=== PATIENT | male | born 1975 | race Two or more races ===

== ENCOUNTER 2025-08-19 16:50 | Inpatient (IN) | payer MEDICAID, SELFPAY ==
[2025-08-19 17:33] VITALS: BP 115/73; PULSE 111; RESP 20; TEMP 36.7; O2SAT 98
--- NOTE | 2025-08-19 17:59 | XR_ITS ---
Examination: CT abdomen with intravenous contrast CT pelvis with intravenous contrast 2-D coronal reconstructions 2-D sagittal reconstructions Date and time of exam: August 27, 2025 11:00 p.m,, comparison 07/13/2023 INDICATIONS: Diagnosis perianal abscess bruising in the buttock regions. CTDI: vol (mGy) 6.55 DLP: (mGycm) 372 Technique: Multiple axial sections of the abdomen and pelvis have been obtained. 64 slice high-resolution scanner used. 3 mm axial sections have been obtained, post intravenous injection 60 cc [id number] 2-D sagittal, coronal reconstructions obtained. Low dose protocols were performed. One or more of the following dose reduction techniques were used; automated exposure control, adjustment of the mA and/or KV according to patient size, use of iterative reconstruction technique. Findings: No focal liver or splenic lesions No gallstones No pancreatic or adrenal mass. No renal or ureteral calculi, no hydronephrosis Aortic calcification no aneurysmal dilatation Normal appendix No bowel obstruction or diverticulitis Thinning of the urinary bladder wall up to 9 mm Transverse prostate dimension 3.5 cm Small fat-containing inguinal hernias Marked skin thickening in the posterior buttock region on the right, for instance axial image 194 Right perianal infection which is extending along the medial intergluteal cleft on the right, without definite fluid-filled perianal abscess Marked infection in the perineum and medial upper thigh region bilaterally, axial image 252, more prominent involving the entire posterior right thigh in addition Early abscess in the posterior upper right thigh, image 250 measuring 33 x 22 mm axial image 251 IMPRESSION: Marked skin thickening in the posterior buttock region on the right extending along the medial intergluteal cleft extending to the perianal region without definite fluid-filled abscess Marked infection in the perineum and medial upper thigh region bilaterally more prominent involving the entire posterior right upper thigh Early abscess in the posterior upper right thigh, axial image 250, measuring at least 33 x 22 mm MRI pelvis upper thigh region without contrast follow-up would best assess for drainable abscesses
--- NOTE | 2025-08-19 17:59 | PD.EDRME ---
Rapid Medical Screening Exam RME Arrival date/time: 08/19/25 16:50 This is a case of 49-year-old male with history of hidradenitis suppurativa EtOH acute renal failure cellulitis of the right buttock abscess status post 2 incision and drainage came in in the emergency room due to redness pain swelling on the right buttocks extending to the perianal area for 1 month worsening of the symptoms this patient decided to sought consult here in the emergency room Chief Complaint: Wound Recheck / Suture Removal Time Seen by Provider: 08/19/25 17:01 Vital signs: Vital Signs Temperature 98.1 F 08/19/25 17:33 Pulse Rate 111 H 08/19/25 17:33 Respiratory Rate 20 08/19/25 17:33 Blood Pressure 115/73 08/19/25 17:33 Pulse Oximetry (%) 98 08/19/25 17:33 Oxygen Delivery Method Room Air 08/19/25 17:33
[2025-08-19 18:42] LABS: Basophils # (Auto) 0.1 Thou/mm3 (0.0-0.2); Basophils % (Auto) 1 % (0-2.5); Eosinophils # (Auto) 0.2 Thou/mm3 (0.0-0.5); Eosinophils % (Auto) 2 % (0-10); Hematocrit 31.6 % (41.0-53.0); Hemoglobin 10.2 g/dL (13.5-16.0); Immature Granulocytes Auto 0.03 Thou/mm3 (0.00-0.00); Lymphocytes # (Auto) 2.1 Thou/mm3 (1.0-4.8); Lymphocytes % (Auto) 19 % (10-50); Mean Corpuscular HGB Conc 32.3 g/dl (31.0-37.0); Mean Corpuscular Hemoglobin 28.3 pg (25.0-35.0); Mean Corpuscular Volume 88 fL (80-100); Monocytes # (Auto) 0.9 Thou/mm3 (0.0-0.8); Monocytes % (Auto) 8 % (0-12); Neutrophils # (Auto) 8.1 Thou/mm3 (1.8-7.7); Neutrophils % (Auto) 71 % (37-80); Nucleated Red Blood Cell # 0.00 Thou/mm3 (0.00-0.00); Nucleated Red Blood Cell % 0 /100 WBC (0); Platelet Count 484 Thou/mm3 (140-440); RDW Standard Deviation 45.5 fL (35.1-43.9); Red Blood Count 3.60 Miln/mm3 (4.50-5.90); White Blood Count 11.4 Thou/mm3 (3.8-10.6)
[2025-08-19 19:06] LABS: Alanine Aminotransferase < 7 U/L (10-49); Albumin, Serum 3.6 gm/dL (3.5-5.0); Albumin/Globulin Ratio 0.8 (1.2-2.2); Alkaline Phosphatase 139 U/L (46-116); Anion Gap 7 (7-16); Aspartate Amino Transferase 10 U/L (0-34); BUN/Creatinine Ratio 8 Ratio (12-20); Bilirubin,Total 0.2 mg/dL (0.3-1.2); Blood Urea Nitrogen < 5 mg/dL (9-23); Calcium 8.7 mg/dL (8.3-10.6); Calcium (Corrected) 9.0 mg/dL (8.5-10.1); Carbon Dioxide 23.8 mMol/L (20.0-31.0); Chloride 102 mMol/L (98-107); Creatinine (Component) 0.6 mg/dL (0.6-1.3); Globulin 4.8 gm/dL (2.3-3.5); Glucose 102 mg/dL (74-106); Osmolality,Calculated 263 (275-295); Potassium 4.2 mMol/L (3.4-5.1); Sodium 133 mMol/L (136-145); Total Protein 8.4 gm/dL (5.7-8.2); eGFR > 60 See Note
--- NOTE | 2025-08-19 20:04 | EDNOTE_ITS ---
ED Skin Abcess FB-RME/HPI General Chief complaint: Skin/Abscess/Foreign Body Stated complaint: WELTS/BRUISING TO BUTTOCK Time Seen by Provider: 08/19/25 17:01 Arrival date/time: 08/19/25 16:50 RME / HPI RME / HPI narrative: 08/19/25 16:50 This is a case of 49-year-old male with history of hidradenitis suppurativa EtOH acute renal failure cellulitis of the right buttock abscess status post 2 incision and drainage came in in the emergency room due to redness pain swelling on the right buttocks extending to the perianal area for 1 month worsening of the symptoms this patient decided to sought consult here in the emergency room See [facility] for Dr. Rasheed's HPI Documentation. 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 Rasheed's Physical Exam Documentation. Course Quality Measures none Orders Category Date Time Status CT Screening NOW Care 08/19/25 17:[address] Screening NOW Care 08/19/25 20:05 Completed Saline [Insert IV] NOW Care 08/19/25 20:[address] abdomen pelvis w con Stat Exams 08/19/25 17:[address] lower extremity BI w Stat Exams 08/19/25 20:05 Completed XR chest 1V portable Stat Exams 08/19/25 20:06 Completed Alcohol, Blood Medical Stat Lab 08/20/25 00:02 Completed Blood Culture (Lab) Stat Lab 08/19/25 20:52 Completed CBC Stat Lab 08/19/25 18:22 Completed CMP [Comprehensive Metabolic Panel] Stat Lab 08/19/25 18:22 Completed CRP [C-Reactive Protein] Stat Lab 08/19/25 20:52 Completed Drug Screen,Urine Stat Lab 08/20/25 05:21 Completed ESR [Sed Rate (ESR)] Stat Lab 08/19/25 20:52 Completed Hemoglobin A1C [Glycohemoglobin w (eAG)] Stat Lab 08/19/25 20:52 Completed Lactate (Lactic Acid) Stat Lab 08/19/25 20:52 Completed Magnesium Stat Lab 08/19/25 20:52 Completed Procalcitonin Stat Lab 08/19/25 20:52 Completed TSH [Thyroid Stimulating Hormone] Stat Lab 08/19/25 20:52 Completed UA, C/S IF [Urinalysis, C/S if Indicated] Stat Lab 08/19/25 22:55 Completed Cefepime Inj [Maxipime Inj] 2 gm Med 08/19/25 20:03 Discontinued SODIUM CHLORIDE 0.9% (Popper) [Ns 0.9% (P)] 50 ml IV X1 Ketorolac Inj [Toradol Inj] Med 08/19/25 20:03 Discontinued 30 mg IVP X1 ONE Morphine* Inj Med 08/19/25 20:03 Discontinued 4 mg IV X1 ONE Ondansetron Inj [Zofran Inj] Med 08/19/25 20:03 Discontinued 4 mg IVP X1 ONE Sodium Chloride 0.9% 1000 ml [Ns] 1,000 ml Med 08/19/25 20:03 Discontinued IV 999 mls/hr Vancomycin Inj 2,000 mg Med 08/19/25 20:03 Discontinued Sodium Chloride 0.9% 500 ml [Ns] 500 ml IV X1 Vital Signs Vital signs: Vital Signs Temperature 98.1 F 08/19/25 17:33 Pulse Rate 111 H 08/19/25 17:33 Respiratory Rate 20 08/19/25 17:33 Blood Pressure 115/73 08/19/25 17:33 Pulse Oximetry (%) 98 08/19/25 17:33 Oxygen Delivery Method Room Air 08/19/25 17:33 Skin / Abscess / Foreign Body MDM Narrative MDM Narrative:: This section includes all my notes and documentations, including HPI, PE, and ED course. Armen Rasheed MD HPI: 49 y/o male presents with large area of pain in the buttocks. Has trouble describing the onset. Has trouble describing the quantity and quality of the pain and exacerbating factors or relieving factors. No fever or chills. No other complaints. ROS: All negative except as documented in HPI. Physical Exam: General: Alert and oriented. Appears uncomfortable. Eyes: Conjunctivae and lids clear. ENT: No nasal congestion. Neck: Supple. Heart: RRR. Lungs: No respiratory distress. Good air movement. No rhonchi, wheezing, rales. Abdomen: Soft and nontender. Back: No CVA tenderness. Skin: Warm and dry. Entire right buttock and proximal half posterior right upper extremity remarkable for tenderness and erythema and calor. Neuro: Alert and oriented X 3. I reviewed all diagnostic test results: My interpretation of the chest x-ray is: NAD. My review of the Abdomen/Pelvis CT report is cellulitis and possible abscess. Blood tests and urine tests were unremarkable. At this point, diagnoses include: Cellulitis Abscess Treatment from me here included: IV fluid Zofran 4 mg IV Toradol 30 mg IV Morphine 4 mg IV Cefepime 2 g IV Vancomycin 2 g IV Patient remained stable. 00:53 - I discussed the case with our hospitalist and our hospitalist. About the presentation and exam and diagnostics and treatments here. And need of further care in the hospital. Will accept the patient. Armen Rasheed MD Patient data External records reviewed:: [facility] previous records (Reviewed prior ED records from 07/13/23. Patient was seen for Anorectal fistula.) Clinical information provided by:: patient Social determinants that could affect healthcare access:: none Patient has the following chronic illnesses:: BPH How is presenting disease/condition affected by chronic disease/condition?: uneffected by Evaluation data The following diagnostics were reviewed and interpreted by me:: lab results and radiology exam(s) Lab and/or radiology exams considered but not ordered:: None Interpretation Summary: I reviewed all diagnostic test results: My interpretation of the chest x-ray is: NAD. My review of the Abdomen/Pelvis CT report is cellulitis and possible abscess. Blood tests and urine tests were unremarkable. Medications / Prescriptions Medications or Prescriptions considered but not ordered:: None Medication administrations:: Medication Administration History Discontinued Medications Acetaminophen (Acetaminophen 325 Mg Tablet) 650 mg PO Q6H PRN PRN Reason: Fever >100.4 Stop: 09/19/25 01:46 Last Admin: 08/20/25 15:06 Dose: 650 mg Documented By: ZAK Acetaminophen (Acetaminophen 325 Mg Tablet) 650 mg PO Q6H PRN PRN Reason: PAIN SCALE 1-3 (mild Stop: 09/19/25 01:46 Heparin Sodium (Porcine) (Heparin Sod Inj 5000 Unit/Ml Vial) 5,000 unit SC BID NAM Stop: 09/03/25 08:59 Last Admin: 08/22/25 08:00 Dose: 5,000 unit Documented By: TAMI Co-signed By: PP Admin: 08/21/25 20:59 Dose: 5,000 unit Documented By: FF Co-signed By: DAVID Admin: 08/21/25 08:53 Dose: 5,000 unit Documented By: jeanna Co-signed By: JULISSA Admin: 08/20/25 21:02 Dose: 5,000 unit Documented By: HILDA Co-signed By: Admin: 08/20/25 08:53 Dose: 5,000 unit Documented By: ZAK Co-signed By: TAMMY Sodium Chloride (Ns) 1,000 mls @ 999 mls/hr IV .Q1H1M ONE Stop: 08/19/25 21:03 Last Infusion: 08/20/25 02:00 Dose: Infused Documented By: Admin: 08/19/25 22:42 Dose: 999 mls/hr Documented By: ELLA Cefepime HCl 2 gm/ Sodium (Chloride) 50 mls @ 100 mls/hr IV X1 ONE Stop: 08/19/25 20:32 Last Infusion: 08/19/25 23:09 Dose: Infused Documented By: Admin: 08/19/25 22:39 Dose: 100 mls/hr Documented By: ELLA Vancomycin HCl 2,000 mg/ (Sodium Chloride) 500 mls @ 150 mls/hr IV X1 ONE Stop: 08/19/25 23:22 Last Infusion: 08/20/25 03:00 Dose: Infused Documented By: Admin: 08/19/25 23:33 Dose: 150 mls/hr Documented By: ELLA Sodium Chloride (Ns) 1,000 mls @ 75 mls/hr IV .[id number] [facility] Stop: 08/20/25 15:23 Last Admin: 08/20/25 03:30 Dose: 75 mls/hr Documented By: CHARO Cefepime HCl 2 gm/ Sodium (Chloride) 50 mls @ 100 mls/hr IV Q8HR NAM Stop: 08/27/25 06:59 Last Admin: 08/22/25 14:27 Dose: 100 mls/hr Documented By: Infusion: 08/22/25 05:45 Dose: Infused Documented By: Admin: 08/22/25 05:15 Dose: 100 mls/hr Documented By: Infusion: 08/21/25 23:04 Dose: Infused Documented By: Admin: 08/21/25 22:34 Dose: 100 mls/hr Documented By: Infusion: 08/21/25 14:11 Dose: Infused Documented By: Admin: 08/21/25 13:41 Dose: 100 mls/hr Documented By: jeanna Infusion: 08/21/25 05:59 Dose: Infused Documented By: ps Admin: 08/21/25 05:29 Dose: 100 mls/hr Documented By: Infusion: 08/20/25 21:32 Dose: Infused Documented By: Admin: 08/20/25 21:02 Dose: 100 mls/hr Documented By: Infusion: 08/20/25 15:27 Dose: Infused Documented By: Admin: 08/20/25 14:57 Dose: 100 mls/hr Documented By: Infusion: 08/20/25 09:22 Dose: Infused Documented By: Admin: 08/20/25 08:52 Dose: 100 mls/hr Documented By: ZAK Doxycycline Hyclate 100 mg/ (Sodium Chloride) 100 mls @ 100 mls/hr IV BID NAM Stop: 08/27/25 08:59 Doxycycline Hyclate 100 mg/ (Sodium Chloride) 100 mls @ 100 mls/hr IV X1 ONE Stop: 08/20/25 03:14 Last Infusion: 08/20/25 04:32 Dose: Infused Documented By: Admin: 08/20/25 03:32 Dose: 100 mls/hr Documented By: CHARO Doxycycline Hyclate 100 mg/ (Sodium Chloride) 100 mls @ 100 mls/hr IV BID NAM Stop: 08/27/25 20:59 Last Admin: 08/22/25 08:01 Dose: 100 mls/hr Documented By: Infusion: 08/21/25 21:59 Dose: Infused Documented By: Admin: 08/21/25 20:59 Dose: 100 mls/hr Documented By: Infusion: 08/21/25 09:53 Dose: Infused Documented By: Admin: 08/21/25 08:53 Dose: 100 mls/hr Documented By: jeanna Infusion: 08/20/25 22:02 Dose: Infused Documented By: jeanna Admin: 08/20/25 21:02 Dose: 100 mls/hr Documented By: HILDA Influenza Virus Vaccine Quadrival (Influenza Virus Quadrivalent 0.5 Ml Syringe) 0.5 ml IMi .ONCE ONE Stop: 08/20/25 16:00 Ketorolac Tromethamine (Ketorolac Inj 30 Mg/Ml Vial) 30 mg IVP X1 ONE Stop: 08/19/25 20:04 Last Admin: 08/19/25 22:40 Dose: 30 mg Documented By: ELLA Morphine Sulfate (Morphine Sulf Inj 4 Mg/Ml Vial) 4 mg IV X1 ONE Stop: 08/19/25 20:04 Last Admin: 08/19/25 22:42 Dose: 4 mg Documented By: ELLA Morphine Sulfate (Morphine Sulf Inj 4 Mg/Ml Vial) 2 mg IVP Q4HR PRN PRN Reason: PAIN SCALE 7-10 (Severe Stop: 08/25/25 01:51 Last Admin: 08/22/25 07:35 Dose: 2 mg Documented By: Admin: 08/21/25 21:06 Dose: 2 mg Documented By: Admin: 08/21/25 05:29 Dose: 2 mg Documented By: Admin: 08/20/25 23:44 Dose: 2 mg Documented By: Admin: 08/20/25 08:53 Dose: 2 mg Documented By: ZAK Ondansetron HCl (Ondansetron Inj 2 Mg/Ml Inj 2 Ml) 4 mg IVP X1 ONE; Protocol Stop: 08/19/25 20:04 Last Admin: 08/19/25 22:41 Dose: 4 mg Documented By: ELLA Ondansetron HCl (Ondansetron Inj 2 Mg/Ml Inj 2 Ml) 4 mg IVP Q6H PRN; Protocol PRN Reason: NAUSEA OR VOMITING Stop: 09/19/25 01:46 Sennosides (Senna Tablet) 1 tab PO QDAY PRN; Protocol PRN Reason: constipation Stop: 09/19/25 01:46 Treatment from me here included: IV fluid Zofran 4 mg IV Toradol 30 mg IV Morphine 4 mg IV Cefepime 2 g IV Vancomycin 2 g IV Consultations Consultation(s) initiated? (list below): Yes Consultation #1 (Physician, Specialty, Details): I discussed the case with our hospitalist and our surgeon. About the presentation and exam and diagnostics and treatments here. And need of further care in the hospital. Will accept the patient. Time: 00:53 Diagnosis Skin/Abscess Differential Diagnosis: abscess of skin or subcutaneous tissue, herpes zoster, cellulitis, insect bites and contact dermatitis Most likely diagnosis given after review of the tests above:: Cellulitis Abscess Admission Indicated Admission indicated?: indicated Explain why admission is indicated or not indicated:: Cellulitis Abscess Admission Request Was there a request for admission?: Yes Admission Attestation Admission request attestation: Discussed case with Hospitalist service regarding admission. Discussed patients ED course, exam findings, labs, and radiology results. Agreed to accept the patient for admission. Disposition Plan Disposition Plan: Admit Discharge Plan Plan Patient Disposition: Admit Acute Care w/in Hospital Problem List Clinical Impression: Cellulitis, Abscess
--- NOTE | 2025-08-19 20:05 | XR_ITS ---
Examination: CT lower extremities with intravenous contrast, 2-D sagittal reconstructions. 2-D coronal reconstructions. 3-D reconstructions. Date and time of exam: August 19, 0 25, 11:00 p.m. INDICATIONS: Abscesses redness swelling and pain in the upper leg regions this week CTDI: vol (mGy): 6.70 DLP: (mGycm): 697 Technique: Multiple 1.25 mm axial sections of the lower extremities with intravenous contrast have been obtained. 2-D sagittal and coronal reconstructions have been obtained. 3-D reconstructions have been obtained. Low dose protocols were performed. One or more of the following dose reduction techniques were used; automated exposure control, adjustment of the mA and/or KV according to patient size, use of iterative reconstruction technique. Findings: Perianal soft tissue infection which is extending along the intergluteal cleft region greater on the right side and posterior right buttock This infection extends into the perineum and medial upper thigh region bilaterally as well as the entire upper posterior medial thigh Suspicious for early soft tissue abscess in the upper posterior thigh axial image 83 better depicted on the earlier CT abdomen/pelvis study Mid and lower thigh regions and lower legs are unremarkable for infection Negative for osteomyelitis IMPRESSION: Extensive soft tissue areas of infection involving the perianal region, perineum, right buttock, upper thigh regions bilaterally medially and involving the entire posterior upper right thigh MRI soft tissue pelvis and upper thigh region without contrast would best assess for drainable fluid collections
--- NOTE | 2025-08-19 20:06 | XR_ITS ---
EXAMINATION: PA chest single view TECHNIQUE: Upright PA chest single view Date and time: August 19, 2025, 2030 hours INDICATIONS: Fever coughing and chest pain beginning 2 days ago. FINDINGS: Normal heart size No pneumonia or pulmonary edema. The osseous structures are intact IMPRESSION: No pneumonia identified
[2025-08-19 21:02] LABS: Lactate (Lactic Acid) 1.1 mMol/L (0.4-2.0)
[2025-08-19 21:23] LABS: Sed Rate (ESR) 119 mm/hr (0-20)
[2025-08-19 21:26] VITALS: BP 123/82; PULSE 100; RESP 19; TEMP 37.6; O2SAT 100
[2025-08-19 21:29] LABS: C-Reactive Protein 10.0 mg/dL (0.0-0.9); Magnesium 1.9 mg/dL (1.6-2.6); Procalcitonin 0.12 ng/ml (0.0-0.49); Thyroid Stimulating Hormone 1.47 uIU/mL (0.55-4.78)
[2025-08-19 21:37] LABS: Glucose Estimated Average 103 mg/dL (80-131); Hemoglobin A1C 5.2 % Hgb (4.8-6.0)
[2025-08-19 22:33] VITALS: BP 128/86; PULSE 90; RESP 21; TEMP 37.5; O2SAT 93
[2025-08-19] MEDS: CEFEPIME INJ 2 GM in SODIUM CHLORIDE 0.9% (Popper) 50 ML IV (22:39)
[2025-08-19] MEDS: KETOROLAC INJ 30 MG/ML VIAL IVP (22:40)
[2025-08-19] MEDS: ONDANSETRON INJ 2 MG/ML INJ 2 ML 4 MG IVP (22:41)
[2025-08-19] MEDS: SODIUM CHLORIDE 0.9% 1000 ML 1,000 ML 999 ML IV (22:42)
[2025-08-19] MEDS: MORPHINE SULF INJ 4 MG/ML VIAL IV (22:42)
[2025-08-19 23:01] LABS: Collection Type, Urine Clean Catch; Squamous Epithelial Cell,Urine 0 /hpf (0-5)
[2025-08-19 23:06] LABS: Bilirubin,Urine Negative (Negative); Blood,Urine Negative (Negative); Clarity,Urine Clear (Clear/Hazy); Color,Urine Yellow (Lt Yel-Yel); Culture Indicated,Urine Not Indicated; Glucose, Urine Negative (Negative); Ketones,Urine Trace (Negative); Leukocyte Esterase,Urine Negative (Negative); Nitrite,Urine Negative (Negative); PH,Urine 6.0 (5.0-7.0); Protein,Urine Trace (Neg - Trace); RBC,Urine 4 /hpf (0-3); Specific Gravity,Urine 1.020 (1.001-1.035); Urobilinogen,Urine 2.0 mg/dL (0.0-1.0); WBC,Urine 2 /hpf (0-5)
[2025-08-19] MEDS: Vancomycin Inj 2,000 MG in SODIUM CHLORIDE 0.9% 500 ML 500 ML 150 MG IV (23:33)
[2025-08-19 23:55] VITALS: BP 124/75; PULSE 95; RESP 20; TEMP 36.8; O2SAT 99
[2025-08-20] VITALS (8 sets, daily range): BP systolic 107–129; BP diastolic 67–88; PULSE 72–98; RESP 16–22; TEMP 36.2–37.2; O2SAT 94–99
--- NOTE | 2025-08-20 | XR_ITS ---
Examination: MRI left femur without contrast Date and time of exam: August 20, 2025, 1243 hours INDICATIONS: Redness swelling and pain involving the perineum and upper thigh regions bilaterally right buttocks, status post incision and drainage May 2022, December 2022, draining peroneal and thigh abscesses Technique: Multiple MRI axial and sagittal sections left femur Sagittal T2-weighted images, TR 3500, TE 118 T1 weighted transverse sections, TR 688 T8.5, T2-weighted sagittal sections T1 weighted sagittal sections TR 621, TE 30 T2 axial sections, TR 4, 190, TE 84. Findings: Images are degraded by patient motion Edema involving the skin and cellulitis infection in the subcutaneous fatty tissue medial left thigh Coronal image 23 demonstrates small fluid-filled abscess in the left perineum, 19 x 17 mm Cortex of the hip and visualized femur are intact No fluid-filled drainable abscess IMPRESSION: Limited study Inflammation and infection in the medial upper left thigh but no fluid-filled abscess noted in the thigh Negative for osteomyelitis Coronal image 23 demonstrates 19 x 17 mm left perineal abscess
--- NOTE | 2025-08-20 | XR_ITS ---
Examination: MRI pelvis without contrast Date and time of exam: August 20, 2025 1243 hours INDICATIONS: History status post incision and drainage peroneal thigh abscess May 2022, December 2022 Technique: Multiple MRI axial and sagittal sections pelvis Sagittal T2-weighted images, TR 3500, TE 118 T1 weighted transverse sections, TR 688 T8.5, T2-weighted sagittal sections T1 weighted sagittal sections TR 621, TE 30 T2 axial sections, TR 4, 190, TE 84. Findings: No abdominal abscess Urinary bladder intact Mild prostatomegaly Inflammation in the right buttock, but no fluid-filled abscess Inflammation in the perineum and medial thigh region more prominent on the left side in the thigh region but also inflammation in the subcutaneous fatty tissue posterior right thigh No fluid-filled drainable abscess No marrow edema involving the ischial regions or bones of the pelvis IMPRESSION: Negative for pelvic abscess Infectious inflammatory change in the right buttock, perineum, greater on the left side medial upper thigh areas but no fluid-filled drainable abscess
--- NOTE | 2025-08-20 | XR_ITS ---
Examination: MRI lumbar spine without contrast Date and time of exam: August 20, 2025, 1243 hours INDICATIONS: Redness swelling and pain involving the right thigh, history peroneal thigh abscess post incision and drainage May 2022, December 2022 Technique: Multiple MRI axial and sagittal sections lumbar spine. Sagittal T2-weighted images, TR 3500, TE 118 T1 weighted transverse sections, TR 688 T8.5, T2-weighted sagittal sections T1 weighted sagittal sections TR 621, TE 30 T2 axial sections, TR 4, 190, TE 84. Findings: Coronal images demonstrate 19 x 18 mm fluid collection in the left perineum, coronal image 22, inflammatory change in the right perineum There is edema and skin thickening medial right thigh but no soft tissue right thigh abscess The skin thickening measures up to 12 mm Cortex of the femur are intact with no endosteal scalloping IMPRESSION: 19 x 18 mm fluid collection consistent with abscess in the left perineum Infection, cellulitis with skin thickening in the medial right thigh but no soft tissue thigh abscess noted
[2025-08-20 01:05] LABS: Alcohol, Blood Medical < 3.0 mg/dL (0-10.0)
--- NOTE | 2025-08-20 02:18 | PD.RESHP ---
Documentation for date of: 08/20/25 [facility] History of Present Illness Chief complaint: Perineal abscess History of present illness: This is a 49-year-old male with past medical history of perineal, thigh abscess s/p incision and drainage in 06/21 and 12/[address] Davidson presented to the ED with complaints of painful and draining perineal and thigh abscess. He states that he has been experiencing more pain while walking, more drainage of both the perineal and thigh abscess serosanguineous and sometimes bloody which prompted him for the ED visit. he complained that he had been going through this perineal and thigh abscess since 2021. He had 2 I&D for the same symptoms and follows Dr. Davidson and other doctors occasionally for the wound care since then. Last time they referred him to the banking pin adjuster for recurrent draining and painful fistula. He took seckulimab every 15 days until 3 months ago where he stopped. However he denies any fevers, diarrhea, constipation or any other abdominal pain. He endorses using smoking cigars and alcohol usage . Today ED visit vitals BP 115/73, pulse 111, respiratory 20, temperature 98.1 saturating 98% on room air. Pertinent labs are hemoglobin 10.2, hematocrit 31.6, WBC 11.4, platelet 484, ESR 119, CRP 10, lactate normal. Imaging findings lower extremity CT?extensive soft tissue areas of infection involving the perianal region, perineum, right, upper thighs region bilaterally and medially and involving the entire posterior upper right thigh. Abdominal pelvis CT scan showing marked skin thickening in the posterior buttock region on the right extending along the medial intergluteal cleft extending to the perianal region Marked infection in the perineum and medial upper thigh bilaterally more prominent involving the posterior right upper thigh Treatment given in ED morphine 4 mg, vancomycin 2 g, ketorolac 30 mg, 1 L NS Past medical history: History of thigh and perineal abscess with incision and drainage 2 times in the past. Social history: Smokes tobacco and recreational alcohol use. Allergic history: None Family history: Noncontributory Review of Systems Review of Systems Systems Reviewed: All systems reviewed, normal except as documented Exam Vital Signs Temp Pulse Resp BP Pulse Ox O2 Del Method 98.2 F 95 20 124/75 99 Room Air 08/19/25 23:55 08/19/25 23:55 08/19/25 23:55 08/19/25 23:55 08/19/25 23:55 08/19/25 21:26 Narrative Exam GENERAL: NAD, AAOx3 HEENT: Moist mucosa. Eyes open, symmetrical, & clear CARDIO: Regular rhythm Noted. No Murmurs. PULM: No noted coughing/dyspnea CTA B/L, no R/W/R GI: Abdomen soft, nondistended, No tenderness SKIN/MSK/EXT: No wounds/rashes/amputations, no pain on palpation.No edema. Pedal pulses present B/L. Induration of the both buttocks Rt>>Lt and Multiple draining sinus on Rt buttock and perineum with serous anguineous discharge and sometimes bloody. NEURO: AAOx3, no focal neuro deficits, able to move all 4 extremities Results: Labs 08/20/25 04:55 08/20/25 04:55 Labs: Short CBC 08/19/25 Range/Units 18:22 WBC 11.4 H (3.8-10.6) Thou/mm3 Hgb 10.2 L (13.5-16.0) g/dL Hct 31.6 L (41.0-53.0) % Plt Count 484 H (140-440) Thou/mm3 BMP 08/19/25 18:22 Sodium 133 L Potassium 4.2 Chloride 102 Carbon Dioxide 23.8 BUN < 5 L Creatinine 0.6 Glucose 102 Calcium 8.7 Liver Function 08/19/25 Range/Units 18:22 Total Bilirubin 0.2 L (0.3-1.2) mg/dL AST 10 (0-34) U/L ALT < 7 L (10-49) U/L Alkaline Phosphatase 139 H (46-116) U/L Albumin 3.6 (3.5-5.0) gm/dL Urine 08/19/25 Range/Units 22:55 Urine Color Yellow (Lt Yel-Yel) Urine Clarity Clear (Clear/Hazy) Urine pH 6.0 (5.0-7.0) Ur Specific [place] 1.020 (1.001-1.035) Urine Protein Trace (Neg - Trace) Urine Glucose (UA) Negative (Negative) Quality Measures Quality Measures none Medications Home Medications and Allergies Allergies Allergy/AdvReac Type Severity Reaction Status Date / Time No Known Allergies Allergy Verified 08/19/25 16:54 Visit Medications Acetaminophen (Acetaminophen 325 Mg Tablet) 650 mg PO Q6H PRN PRN Reason: Fever >100.4 Stop: 09/19/25 01:46 Acetaminophen (Acetaminophen 325 Mg Tablet) 650 mg PO Q6H PRN PRN Reason: PAIN SCALE 1-3 (mild Stop: 09/19/25 01:46 Heparin Sodium (Porcine) (Heparin Sod Inj 5000 Unit/Ml Vial) 5,000 unit SC BID NAM Stop: 09/03/25 08:59 Sodium Chloride (Ns) 1,000 mls @ 75 mls/hr IV .[id number] NAM Stop: 08/20/25 15:23 Cefepime HCl 2 gm/ Sodium (Chloride) 50 mls @ 100 mls/hr IV Q8HR NAM Stop: 08/27/25 02:05 Doxycycline Hyclate 100 mg/ (Sodium Chloride) 100 mls @ 100 mls/hr IV BID NAM Stop: 08/27/25 08:59 Doxycycline Hyclate 100 mg/ (Sodium Chloride) 100 mls @ 100 mls/hr IV X1 ONE Stop: 08/20/25 03:14 Morphine Sulfate (Morphine Sulf Inj 4 Mg/Ml Vial) 2 mg IVP Q4HR PRN PRN Reason: PAIN SCALE 7-10 (Severe Stop: 08/25/25 01:51 Ondansetron HCl (Ondansetron Inj 2 Mg/Ml Inj 2 Ml) 4 mg IVP Q6H PRN; Protocol PRN Reason: NAUSEA OR VOMITING Stop: 09/19/25 01:46 Sennosides (Senna Tablet) 1 tab PO QDAY PRN; Protocol PRN Reason: constipation Stop: 09/19/25 01:46 Discontinued Medications Sodium Chloride (Ns) 1,000 mls @ 999 mls/hr IV .[id number] ONE Stop: 08/19/25 21:03 Last Infusion: 08/20/25 02:00 Dose: Infused Cefepime HCl 2 gm/ Sodium (Chloride) 50 mls @ 100 mls/hr IV X1 ONE Stop: 08/19/25 20:32 Last Infusion: 08/19/25 23:09 Dose: Infused Vancomycin HCl 2,000 mg/ (Sodium Chloride) 500 mls @ 150 mls/hr IV X1 ONE Stop: 08/19/25 23:22 Last Admin: 08/19/25 23:33 Dose: 150 mls/hr Ketorolac Tromethamine (Ketorolac Inj 30 Mg/Ml Vial) 30 mg IVP X1 ONE Stop: 08/19/25 20:04 Last Admin: 08/19/25 22:40 Dose: 30 mg Morphine Sulfate (Morphine Sulf Inj 4 Mg/Ml Vial) 4 mg IV X1 ONE Stop: 08/19/25 20:04 Last Admin: 08/19/25 22:42 Dose: 4 mg Ondansetron HCl (Ondansetron Inj 2 Mg/Ml Inj 2 Ml) 4 mg IVP X1 ONE; Protocol Stop: 08/19/25 20:04 Last Admin: 08/19/25 22:41 Dose: 4 mg Assessment & Plan Plan This is a 49-year-old male with past medical history of perineal, thigh abscess s/p incision and drainage in 06/21 and 12/[address] Davidson presented to the ED with complaints of painful and draining perineal and thigh abscess. He was admitted for worsening of perineal and thigh abscess. # Perineal and bilateral thigh abscess Rt>>LT # ? Hidradenitis suppurativa. History of perineal and thigh abscess since 2021 and had 2 I&D in May 2022 and December [address] Davidson. After that he was following outpatient Dr. Davidson and the others for his wound care. Worsening of pain and bilateral multiple draining sinuses in the thigh and perineum. Colonoscopy was done in 2022 shows some inflammation in the colon and prescribed sulfasalazine at that time but the patient is not taking anymore. Hemoglobin 10.2, hematocrit 31.6, WBC 11.4. ESR 119, CRP 10 indicating of ongoing inflammation CT?extensive soft tissue -areas of infection involving the perianal region, perineum, right, upper thighs region bilaterally Abdominal pelvis CT scan- showing marked skin thickening in the posterior buttock region on the right extending along the medial intergluteal cleft extending to the perianal region Marked infection in the perineum and medial upper thigh bilaterally more prominent involving the posterior right upper thigh. History of smoking, history of secukinumab usage-last dose taken 3 months back prescribed by banking pin adjuster. - General Surgery was consulted and MRI pelvis without contrast was ordered to patient assess drainable fluid collection. ?Started on doxycycline 100 mg twice daily and cefepime 2 g IV every 8 hours to cover the skin organism and possible Hidradenitis suppurativa. ?Started on IV fluids normal saline 75 cc/h . ? Follow-up with blood culture results. ?Consider starting on biological agent like secukinumab in consultation with dermatology. #Normocytic Anemia Hemoglobin 10.2. ?Continue to monitor # Smoking. ?Educated on importance of smoking cessation. Code status: Full DVT prophylaxis: Heparin Diet: Regular Diet Bae: None Lines: PIV Supplemental O2: none Disposition:Med-Surg Discussed with I discussed this case with my senior Dr. Elias and my attending Dr. Ewa Burnham MD PGY1 Attending Provider Attestation/Addendum 49-year-old male patient who was admitted for painful and draining perineal and thigh abscesses. The patient had previous I&D in the same region few years ago. I discussed with and supervised the resident physician who took care of this patient. I agree with the assessment and plan as above.
[2025-08-20] MEDS: SODIUM CHLORIDE 0.9% 1000 ML 1,000 ML 75 ML IV (03:30)
[2025-08-20] MEDS: DOXYCYCLINE INJ 100 MG in SODIUM CHLORIDE 0.9% (POP) 100 ML IV ×2 (03:32→21:02)
[2025-08-20 05:35] LABS: Basophils # (Auto) 0.1 Thou/mm3 (0.0-0.2); Basophils % (Auto) 1 % (0-2.5); Eosinophils # (Auto) 0.2 Thou/mm3 (0.0-0.5); Eosinophils % (Auto) 3 % (0-10); Hematocrit 28.3 % (41.0-53.0); Hemoglobin 8.9 g/dL (13.5-16.0); Immature Granulocytes Auto 0.02 Thou/mm3 (0.00-0.00); Lymphocytes # (Auto) 1.8 Thou/mm3 (1.0-4.8); Lymphocytes % (Auto) 23 % (10-50); Mean Corpuscular HGB Conc 31.4 g/dl (31.0-37.0); Mean Corpuscular Hemoglobin 28.2 pg (25.0-35.0); Mean Corpuscular Volume 90 fL (80-100); Monocytes # (Auto) 0.8 Thou/mm3 (0.0-0.8); Monocytes % (Auto) 10 % (0-12); Neutrophils # (Auto) 4.9 Thou/mm3 (1.8-7.7); Neutrophils % (Auto) 63 % (37-80); Nucleated Red Blood Cell # 0.00 Thou/mm3 (0.00-0.00); Nucleated Red Blood Cell % 0 /100 WBC (0); Platelet Count 480 Thou/mm3 (140-440); RDW Standard Deviation 46.0 fL (35.1-43.9); Red Blood Count 3.16 Miln/mm3 (4.50-5.90); White Blood Count 7.8 Thou/mm3 (3.8-10.6)
[2025-08-20 06:24] LABS: Alanine Aminotransferase < 7 U/L (10-49); Albumin, Serum 2.8 gm/dL (3.5-5.0); Albumin/Globulin Ratio 0.7 (1.2-2.2); Alkaline Phosphatase 111 U/L (46-116); Anion Gap 7 (7-16); Aspartate Amino Transferase < 10 U/L (0-34); BUN/Creatinine Ratio 10 Ratio (12-20); Bilirubin,Total 0.2 mg/dL (0.3-1.2); Blood Urea Nitrogen 5 mg/dL (9-23); Calcium 7.9 mg/dL (8.3-10.6); Calcium (Corrected) 8.9 mg/dL (8.5-10.1); Carbon Dioxide 24.3 mMol/L (20.0-31.0); Cardiac Risk Estimate 2.2 RATIO (4.0-6.7); Chloride 108 mMol/L (98-107); Cholesterol 84 mg/dL (132-200); Creatinine (Component) 0.5 mg/dL (0.6-1.3); Globulin 3.8 gm/dL (2.3-3.5); Glucose 90 mg/dL (74-106); HDL Cholesterol 38 mg/dL (40-60); LDL Cholesterol,Calculated 42 mg/dL (0-130); Magnesium 1.8 mg/dL (1.6-2.6); Osmolality,Calculated 274 (275-295); Potassium 4.0 mMol/L (3.4-5.1); Sodium 139 mMol/L (136-145); Thyroid Stimulating Hormone 0.97 uIU/mL (0.55-4.78); Total Protein 6.6 gm/dL (5.7-8.2); Triglycerides 22 mg/dL (30-150); eGFR > 60 See Note
[2025-08-20 06:24] LABS: Amphetamine/Methamp Scrn,U Negative (Negative); Barbiturate Screen,Urine Negative (Negative); Benzodiazepines Screen,Urine Negative (Negative); Benzoylecgonine Screen, Ur Negative (Negative); Fentanyl Screen,Urine Negative (Negative); Opiate Screen,Urine Positive (Negative); THC Screen,Urine Negative (Negative)
[2025-08-20] MEDS: CEFEPIME INJ 2 GM in SODIUM CHLORIDE 0.9% (Popper) 50 ML IV ×3 (08:52→21:02)
[2025-08-20] MEDS: MORPHINE SULF INJ 4 MG/ML VIAL 2 MG IVP ×2 (08:53→23:44)
[2025-08-20] MEDS: HEPARIN SOD INJ 5000 UNIT/ML VIAL SC ×2 (08:53→21:02)
--- NOTE | 2025-08-20 11:11 | ESPR_ITS ---
<Statement entered by Anna Quispe MD - 08/23/25 17:19> I reviewed above note and agree with findings and plans. I have also personally examined the patient with medicine team and went over assessment and plan with medical team including international relations professor and resident physician. Documentation for date of: 08/20/25 Subjective Subjective Interval history: Labs reviewed and patient examined at the bedside. Pending general surgery evaluation for his abscess in perianal, perineum, and bilateral upper thigh. Ordered MRI femur left and right without contrast and MRI pelvis without contrast. Patient is continuing IV doxycycline milligram twice daily and cefepime 2 g IV Q8HR. He is also on IVF NS 75 mL/h. Denies chest pain, palpation, SOB, abdominal pain, N/V, fevers or chills. Exam Vital Signs Temp Pulse Resp BP Pulse Ox O2 Del Method 98.4 F 98 18 120/73 97 Room Air 08/20/25 08:32 08/20/25 08:32 08/20/25 08:32 08/20/25 08:32 08/20/25 08:32 08/20/25 08:32 Narrative Exam General: Stressed, AAO x3 Eye: PERRL, EOMI, normal conjunctiva, no scleral icterus HENT: Normocephalic, atraumatic, hearing intact to conversation at normal volume, moist oral mucosa Neck: Supple, non-tender, no JVD, no lymphadenopathy Lungs: Non-labored respirations, symmetric chest rise, Clear to auscultate bilaterally, No wheezing, rhonchi, crackles Heart: Peripheral pulses intact bilaterally, Regular Rate and Rhythm. Abdomen: Soft, non-tender, non-distended, no palpable masses Musculoskeletal: Normal range of motion and strength, No cyanosis or edema, No visible joint swelling Skin: Induration of bilateral buttocks. Right buttock/perieum is draining with serosanguineous/bloody discharge Psychiatric: Cooperative, appropriate mood and affect, Awake and alert, not agitated Neuro: Cranial nerves II-XII grossly intact. Strength 5/5 throughout. Sensations intact to light touch. Objective Labs 08/20/25 04:55 08/20/25 04:55 Labs: Laboratory Results - last 24 hr 08/19/25 08/19/25 08/19/25 18:22 20:52 22:55 WBC 11.4 H RBC 3.60 L Hgb 10.2 L Hct 31.6 L MCV 88 MCH 28.3 MCHC 32.3 RDW Std Deviation 45.5 H Plt Count 484 H Neut % (Auto) 71 Lymph % (Auto) 19 [place] % (Auto) 8 Eos % (Auto) 2 Baso % (Auto) 1 Neut # (Auto) 8.1 H Lymph # (Auto) 2.1 [place] # (Auto) 0.9 H Eos # (Auto) 0.2 Baso # (Auto) 0.1 Immature Gran # (Auto) 0.03 H Absolute Nucleated RBC 0.00 Immature Gran % 0 Nucleated RBC % 0 ESR 119 H Sodium 133 L Potassium 4.2 Chloride 102 Carbon Dioxide 23.8 Anion Gap 7 BUN < 5 L Creatinine 0.6 Estim Creat Clear Calc Not Performed. eGFR > 60 BUN/Creatinine Ratio 8 L Glucose [address] Glu mg/dL 103 Hemoglobin A1c 5.2 Calculated Osmolality 263 L Lactic Acid 1.1 Calcium 8.7 Corrected Calcium 9.0 Magnesium 1.9 Total Bilirubin 0.2 L AST 10 ALT < 7 L Alkaline Phosphatase 139 H C-Reactive Prot, Quant 10.0 H Total Protein 8.4 H Albumin 3.6 Globulin 4.8 H Albumin/Globulin Ratio 0.8 L Triglycerides Cholesterol LDL Cholesterol, Calc HDL Cholesterol Cholesterol/HDL Ratio Procalcitonin 0.12 TSH 1.47 Ur Collection Type Clean Catch Urine Color Yellow Urine Clarity Clear Urine pH 6.0 Ur Specific [place] 1.020 Urine Protein Trace Urine Glucose (UA) Negative Urine Ketones Trace Urine Blood Negative Urine Nitrite Negative Urine Bilirubin Negative Urine Urobilinogen (Auto) 2.0 Ur Leukocyte Esterase Negative Urine RBC 4 H Urine WBC 2 Ur Squamous Epith Cells 0 Urine Bacteria None Ur Culture Indicated? Not Indicated Urine Opiates Screen Urine Fentanyl Screen Ur Barbiturates Screen U Amphetamin/Meth Scrn U Benzodiazepines Scrn U Cocaine Metab Screen U Marijuana (THC) Screen Ethyl Alcohol < 3.0 08/20/25 08/20/25 04:55 05:21 WBC 7.8 RBC 3.16 L Hgb 8.9 L Hct 28.3 L MCV 90 MCH 28.2 MCHC 31.4 RDW Std Deviation 46.0 H Plt Count 480 H Neut % (Auto) 63 Lymph % (Auto) 23 [place] % (Auto) 10 Eos % (Auto) 3 Baso % (Auto) 1 Neut # (Auto) 4.9 Lymph # (Auto) 1.8 [place] # (Auto) 0.8 Eos # (Auto) 0.2 Baso # (Auto) 0.1 Immature Gran # (Auto) 0.02 H Absolute Nucleated RBC 0.00 Immature Gran % 0 Nucleated RBC % 0 ESR Sodium 139 Potassium 4.0 Chloride 108 H Carbon Dioxide 24.3 Anion Gap 7 BUN 5 L Creatinine 0.5 L Estim Creat Clear Calc Not Performed. eGFR > 60 BUN/Creatinine Ratio 10 L Glucose [address] Glu mg/dL Hemoglobin A1c Calculated Osmolality 274 L Lactic Acid Calcium 7.9 L Corrected Calcium 8.9 Magnesium 1.8 Total Bilirubin 0.2 L AST < 10 ALT < 7 L Alkaline Phosphatase 111 D C-Reactive Prot, Quant Total Protein 6.6 Albumin 2.8 L D Globulin 3.8 H Albumin/Globulin Ratio 0.7 L Triglycerides 22 L Cholesterol 84 L LDL Cholesterol, Calc 42 HDL Cholesterol 38 L Cholesterol/HDL Ratio 2.2 L Procalcitonin TSH 0.97 Ur Collection Type Urine Color Urine Clarity Urine pH Ur Specific [place] Urine Protein Urine Glucose (UA) Urine Ketones Urine Blood Urine Nitrite Urine Bilirubin Urine Urobilinogen (Auto) Ur Leukocyte Esterase Urine RBC Urine WBC Ur Squamous Epith Cells Urine Bacteria Ur Culture Indicated? Urine Opiates Screen Positive A Urine Fentanyl Screen Negative Ur Barbiturates Screen Negative U Amphetamin/Meth Scrn Negative U Benzodiazepines Scrn Negative U Cocaine Metab Screen Negative U Marijuana (THC) Screen Negative Ethyl Alcohol Quality Measures Quality Measures none Assessment & Plan Assessment Current Active Medications: Generic Name Dose Route Start Last Admin Trade Name Uriahq PRN Reason Stop Dose Admin Acetaminophen 650 mg 08/20/25 01:47 Acetaminophen 325 Mg Tablet PO 09/19/25 01:46 Q6H PRN Fever >100.4 Acetaminophen 650 mg 08/20/25 01:47 Acetaminophen 325 Mg Tablet PO 09/19/25 01:46 Q6H PRN PAIN SCALE 1-3 (mild Heparin Sodium (Porcine) 5,000 unit 08/20/25 09:00 08/20/25 08:53 Heparin Sod Inj 5000 Unit/Ml Vial SC 09/03/25 08:59 5,000 unit BID NAM Administration Sodium Chloride 1,000 mls @ 75 mls/hr 08/20/25 02:04 08/20/25 03:30 Ns IV 08/20/25 15:23 75 mls/hr .[id number] NAM Administration Cefepime HCl 2 gm/ Sodium 50 mls @ 100 mls/hr 08/20/25 07:00 08/20/25 08:52 Chloride IV 08/27/25 06:59 100 mls/hr Q8HR NAM Administration Doxycycline Hyclate 100 mg/ 100 mls @ 100 mls/hr 08/20/25 21:00 Sodium Chloride IV 08/27/25 20:59 BID NAM Morphine Sulfate 2 mg 08/20/25 01:52 08/20/25 08:53 Morphine Sulf Inj 4 Mg/Ml Vial IVP 08/25/25 01:51 2 mg Q4HR PRN Administration PAIN SCALE 7-10 (Severe Ondansetron HCl 4 mg 08/20/25 01:47 Ondansetron Inj 2 Mg/Ml Inj 2 Ml IVP 09/19/25 01:46 Q6H PRN NAUSEA OR VOMITING Protocol Sennosides 1 tab 08/20/25 01:47 Senna Tablet PO 09/19/25 01:46 QDAY PRN constipation Protocol Plan This is a 49-year-old male with past medical history of perineal, thigh abscess s/p incision and drainage in 06/21 and 12/[address] Davidson presented to the ED with complaints of painful and draining perineal and thigh abscess. He was admitted for worsening of perineal and thigh abscess. # Perineal and bilateral thigh abscess Rt>>LT # ? Hidradenitis suppurativa. -History of perineal and thigh abscess since 2021 and had 2 I&D in May 2022 and December [address] Davidson. After that he was following outpatient Dr. Davidson and the others for his wound care. -Worsening of pain and bilateral multiple draining sinuses in the thigh and perineum. -Colonoscopy was done in 2022 shows some inflammation in the colon and prescribed sulfasalazine at that time but the patient is not taking anymore. -On admission, Hemoglobin 10.2, hematocrit 31.6, WBC 11.4. ESR 119, CRP 10 indicating of ongoing inflammation -CT abd/pelvis (08/19/2025): Marked skin thickening in the posterior buttock region on the right extending along the medial intergluteal cleft extending to the perianal region without definite fluid-filled abscess. Marked infection in the perineum and medial upper thigh region bilaterally more prominent involving the entire posterior right upper thigh. Early abscess in the posterior upper right thigh, axial image 250, measuring at least 33 x 22 mm. MRI pelvis upper thigh region without contrast follow-up would best assess for drainable abscesses -CT Lower Extremity (08/19/2025); Extensive soft tissue areas of infection involving the perianal region, perineum, right buttock, upper thigh regions bilaterally medially and involving the entire posterior upper right thigh. MRI soft tissue pelvis and upper thigh region without contrast would best assess for drainable fluid collections -History of smoking, history of secukinumab usage-last dose taken 3 months back prescribed by gold letterer. Plan: -Pending general surgery evaluation for his abscess in perianal, perineum, and bilateral upper thigh. -Ordered MRI femur left and right without contrast and MRI pelvis without contrast. -Started on doxycycline 100 mg twice daily and cefepime 2 g IV every 8 hours to cover the skin organism and possible Hidradenitis suppurativa. -Started on IV fluids normal saline 75 cc/h . -Follow-up with blood culture results. -Consider starting on biological agent like secukinumab in consultation with dermatology. #Normocytic Anemia -On admission, Hemoglobin 10.2. ?Continue to monitor # Smoking. ?Educated on importance of smoking cessation. Code status: Full DVT prophylaxis: Heparin Diet: Regular Diet Bae: None Lines: PIV Supplemental O2: none Disposition:Med-Surg Assessment and plan discussed with my attending physician Dr. Brittaney Saldivar (PGY-1) - Internal medicine resident
--- NOTE | 2025-08-20 13:04 | PC.NURSE ---
PT in MRI, Was picked up by division order technician and went in [facility]
[2025-08-20] MEDS: ACETAMINOPHEN 325 MG TABLET 650 MG PO (15:06)
--- NOTE | 2025-08-20 15:22 | PC.NURSE ---
Handoff report given to Shivani BLAIR. Pt alert and oriented able to transfer.
[2025-08-21] VITALS: BP 137/78; PULSE 65; RESP 20; TEMP 37.2; O2SAT 93
[2025-08-21 04:00] VITALS: BP 117/68; PULSE 78; RESP 18; TEMP 36.6; O2SAT 94
[2025-08-21] MEDS: CEFEPIME INJ 2 GM in SODIUM CHLORIDE 0.9% (Popper) 50 ML IV ×3 (05:29→22:34)
[2025-08-21] MEDS: MORPHINE SULF INJ 4 MG/ML VIAL 2 MG IVP ×2 (05:29→21:06)
[2025-08-21 05:50] LABS: Basophils # (Auto) 0.1 Thou/mm3 (0.0-0.2); Basophils % (Auto) 1 % (0-2.5); Eosinophils # (Auto) 0.2 Thou/mm3 (0.0-0.5); Eosinophils % (Auto) 3 % (0-10); Hematocrit 28.6 % (41.0-53.0); Hemoglobin 9.0 g/dL (13.5-16.0); Immature Granulocytes Auto 0.03 Thou/mm3 (0.00-0.00); Lymphocytes # (Auto) 2.3 Thou/mm3 (1.0-4.8); Lymphocytes % (Auto) 27 % (10-50); Mean Corpuscular HGB Conc 31.5 g/dl (31.0-37.0); Mean Corpuscular Hemoglobin 28.1 pg (25.0-35.0); Mean Corpuscular Volume 89 fL (80-100); Monocytes # (Auto) 0.8 Thou/mm3 (0.0-0.8); Monocytes % (Auto) 9 % (0-12); Neutrophils # (Auto) 5.2 Thou/mm3 (1.8-7.7); Neutrophils % (Auto) 60 % (37-80); Nucleated Red Blood Cell # 0.00 Thou/mm3 (0.00-0.00); Nucleated Red Blood Cell % 0 /100 WBC (0); Platelet Count 481 Thou/mm3 (140-440); RDW Standard Deviation 45.8 fL (35.1-43.9); Red Blood Count 3.20 Miln/mm3 (4.50-5.90); White Blood Count 8.7 Thou/mm3 (3.8-10.6)
[2025-08-21 06:46] LABS: INR 1.1 (0.9-1.3); Prothrombin Time 11.2 Seconds (9.0-12.2)
[2025-08-21 06:50] LABS: Alanine Aminotransferase < 7 U/L (10-49); Albumin, Serum 3.1 gm/dL (3.5-5.0); Albumin/Globulin Ratio 0.8 (1.2-2.2); Alkaline Phosphatase 107 U/L (46-116); Anion Gap 9 (7-16); Aspartate Amino Transferase 11 U/L (0-34); BUN/Creatinine Ratio 8 Ratio (12-20); Bilirubin,Total 0.2 mg/dL (0.3-1.2); Blood Urea Nitrogen < 5 mg/dL (9-23); Calcium 8.3 mg/dL (8.3-10.6); Calcium (Corrected) 9.0 mg/dL (8.5-10.1); Carbon Dioxide 23.4 mMol/L (20.0-31.0); Chloride 106 mMol/L (98-107); Creatinine (Component) 0.6 mg/dL (0.6-1.3); Estimated Creatinine Clearance 122.4 mL/min (>60); Globulin 3.9 gm/dL (2.3-3.5); Glucose 84 mg/dL (74-106); Magnesium 1.8 mg/dL (1.6-2.6); Osmolality,Calculated 271 (275-295); Phosphorous 3.7 mg/dL (2.4-5.1); Potassium 4.2 mMol/L (3.4-5.1); Sodium 138 mMol/L (136-145); Total Protein 7.0 gm/dL (5.7-8.2); eGFR > 60 See Note
[2025-08-21 08:00] VITALS: BP 129/70; PULSE 76; RESP 18; TEMP 36.6; O2SAT 99
[2025-08-21] MEDS: HEPARIN SOD INJ 5000 UNIT/ML VIAL SC ×2 (08:53→20:59)
[2025-08-21] MEDS: DOXYCYCLINE INJ 100 MG in SODIUM CHLORIDE 0.9% (POP) 100 ML IV ×2 (08:53→20:59)
--- NOTE | 2025-08-21 09:46 | PC.SS ---
Follow up note: On IV antibiotic. Pending surgery recommendations.
--- NOTE | 2025-08-21 10:55 | ESPR_ITS ---
<Statement entered by Anna Quispe MD - 08/26/25 08:34> I reviewed above note and agree with findings and plans. I have also personally examined the patient with medicine team and went over assessment and plan with medical team including qa intern and resident physician. Documentation for date of: 08/21/25 Subjective Subjective Interval history: No Overnight events. Labs reviewed and patient examined at the bedside. MRI of left/right femur and pelvis showed: Left Femur MRI w/o contrast (08/20/2025): Limited study, Inflammation and infection in the medial upper left thigh but no fluid-filled abscess noted in the thigh, Negative for osteomyelitis, Coronal image 23 demonstrates 19 x 17 mm left perineal abscess. Right Femur MRI w/o contrast (08/20/2025): 19 x 18 mm fluid collection consistent with abscess in the left perineum. Infection, cellulitis with skin thickening in the medial right thigh but no soft tissue thigh abscess noted Pelvis MRI w/o contrast (08/20/2025): Negative for pelvic abscess, Infectious inflammatory change in the right buttock, perineum, greater on the left side medial upper thigh areas but no fluid-filled drainable abscess Overall, there were no drainable collections on imaging, not requiring any surgical intervention. Per surgery recommendations, will continue antibiotics and percocet prn. Pending discharge within next 24 to 48 hours. Denies chest pain, palpation, SOB, abdominal pain, N/V, fevers or chills. Exam Vital Signs Temp Pulse Resp BP Pulse Ox O2 Del Method 97.8 F 76 18 129/70 99 Room Air 08/21/25 08:00 08/21/25 08:00 08/21/25 08:00 08/21/25 08:00 08/21/25 08:00 08/21/25 08:00 Narrative Exam General: Stressed, AAO x3 Eye: PERRL, EOMI, normal conjunctiva, no scleral icterus HENT: Normocephalic, atraumatic, hearing intact to conversation at normal volume, moist oral mucosa Neck: Supple, non-tender, no JVD, no lymphadenopathy Lungs: Non-labored respirations, symmetric chest rise, Clear to auscultate bilaterally, No wheezing, rhonchi, crackles Heart: Peripheral pulses intact bilaterally, Regular Rate and Rhythm. Abdomen: Soft, non-tender, non-distended, no palpable masses Musculoskeletal: Normal range of motion and strength, No cyanosis or edema, No visible joint swelling Skin: Induration of bilateral buttocks. Right buttock/perieum is draining with serosanguineous/bloody discharge Psychiatric: Cooperative, appropriate mood and affect, Awake and alert, not agitated Neuro: Cranial nerves II-XII grossly intact. Strength 5/5 throughout. Sensations intact to light touch. Objective Labs 08/21/25 04:53 08/21/25 04:53 Labs: Laboratory Results - last 24 hr 08/21/25 04:53 WBC 8.7 RBC 3.20 L Hgb 9.0 L Hct 28.6 L MCV 89 MCH 28.1 MCHC 31.5 RDW Std Deviation 45.8 H Plt Count 481 H Neut % (Auto) 60 Lymph % (Auto) 27 [place] % (Auto) 9 Eos % (Auto) 3 Baso % (Auto) 1 Neut # (Auto) 5.2 Lymph # (Auto) 2.3 [place] # (Auto) 0.8 Eos # (Auto) 0.2 Baso # (Auto) 0.1 Immature Gran # (Auto) 0.03 H Absolute Nucleated RBC 0.00 Immature Gran % 0 Nucleated RBC % 0 PT 11.2 INR 1.1 Sodium 138 Potassium 4.2 Chloride 106 Carbon Dioxide 23.4 Anion Gap 9 BUN < 5 L Creatinine 0.6 Estim Creat Clear Calc 122.4 eGFR > 60 BUN/Creatinine Ratio 8 L Glucose 84 Calculated Osmolality 271 L Calcium 8.3 Corrected Calcium 9.0 Phosphorus 3.7 Magnesium 1.8 Total Bilirubin 0.2 L AST 11 ALT < 7 L Alkaline Phosphatase 107 Total Protein 7.0 Albumin 3.1 L Globulin 3.9 H Albumin/Globulin Ratio 0.8 L Quality Measures Quality Measures none Assessment & Plan Assessment Current Active Medications: Generic Name Dose Route Start Last Admin Trade Name Freq PRN Reason Stop Dose Admin Acetaminophen 650 mg 08/20/25 01:47 08/20/25 15:06 Acetaminophen 325 Mg Tablet PO 09/19/25 01:46 650 mg Q6H PRN Administration Fever >100.4 Acetaminophen 650 mg 08/20/25 01:47 Acetaminophen 325 Mg Tablet PO 09/19/25 01:46 Q6H PRN PAIN SCALE 1-3 (mild Heparin Sodium (Porcine) 5,000 unit 08/20/25 09:00 08/21/25 08:53 Heparin Sod Inj 5000 Unit/Ml Vial SC 09/03/25 08:59 5,000 unit BID NAM Administration Cefepime HCl 2 gm/ Sodium 50 mls @ 100 mls/hr 08/20/25 07:00 08/21/25 05:29 Chloride IV 08/27/25 06:59 100 mls/hr Q8HR NAM Administration Doxycycline Hyclate 100 mg/ 100 mls @ 100 mls/hr 08/20/25 21:00 08/21/25 08:53 Sodium Chloride IV 08/27/25 20:59 100 mls/hr BID NAM Administration Morphine Sulfate 2 mg 08/20/25 01:52 08/21/25 05:29 Morphine Sulf Inj 4 Mg/Ml Vial IVP 08/25/25 01:51 2 mg Q4HR PRN Administration PAIN SCALE 7-10 (Severe Ondansetron HCl 4 mg 08/20/25 01:47 Ondansetron Inj 2 Mg/Ml Inj 2 Ml IVP 09/19/25 01:46 Q6H PRN NAUSEA OR VOMITING Protocol Sennosides 1 tab 08/20/25 01:47 Senna Tablet PO 09/19/25 01:46 QDAY PRN constipation Protocol Plan This is a 49-year-old male with past medical history of perineal, thigh abscess s/p incision and drainage in 06/21 and 12/[address] Davidson presented to the ED with complaints of painful and draining perineal and thigh abscess. He was admitted for worsening of perineal and thigh abscess. # Perineal and bilateral thigh abscess Rt>>LT # ? Hidradenitis suppurativa. -History of perineal and thigh abscess since 2021 and had 2 I&D in May 2022 and December [address] Davidson. After that he was following outpatient Dr. Davidson and the others for his wound care. -Worsening of pain and bilateral multiple draining sinuses in the thigh and perineum. -Colonoscopy was done in 2022 shows some inflammation in the colon and prescribed sulfasalazine at that time but the patient is not taking anymore. -On admission, Hemoglobin 10.2, hematocrit 31.6, WBC 11.4. ESR 119, CRP 10 indicating of ongoing inflammation -CT abd/pelvis (08/19/2025): Marked skin thickening in the posterior buttock region on the right extending along the medial intergluteal cleft extending to the perianal region without definite fluid-filled abscess. Marked infection in the perineum and medial upper thigh region bilaterally more prominent involving the entire posterior right upper thigh. Early abscess in the posterior upper right thigh, axial image 250, measuring at least 33 x 22 mm. MRI pelvis upper thigh region without contrast follow-up would best assess for drainable abscesses -CT Lower Extremity (08/19/2025); Extensive soft tissue areas of infection involving the perianal region, perineum, right buttock, upper thigh regions bilaterally medially and involving the entire posterior upper right thigh. MRI soft tissue pelvis and upper thigh region without contrast would best assess for drainable fluid collections -History of smoking, history of secukinumab usage-last dose taken 3 months back prescribed by hvac controls technician. -Left Femur MRI w/o contrast (08/20/2025): Limited study, Inflammation and infection in the medial upper left thigh but no fluid-filled abscess noted in the thigh, Negative for osteomyelitis, Coronal image 23 demonstrates 19 x 17 mm left perineal abscess. -Right Femur MRI w/o contrast (08/20/2025): 19 x 18 mm fluid collection consistent with abscess in the left perineum. Infection, cellulitis with skin thickening in the medial right thigh but no soft tissue thigh abscess noted - Pelvis MRI w/o contrast (08/20/2025): Negative for pelvic abscess, Infectious inflammatory change in the right buttock, perineum, greater on the left side medial upper thigh areas but no fluid-filled drainable abscess Plan: -Overall, there were no drainable collections on imaging, not requiring any surgical intervention. Per surgery recommendations, will continue antibiotics and percocet prn. -Started on doxycycline 100 mg twice daily and cefepime 2 g IV every 8 hours to cover the skin organism and possible Hidradenitis suppurativa. -Started on IV fluids normal saline 75 cc/h . -Follow-up with blood culture results. -Consider starting on biological agent like secukinumab in consultation with dermatology. #Normocytic Anemia -On admission, Hemoglobin 10.2. ?Continue to monitor # Smoking. ?Educated on importance of smoking cessation. Code status: Full DVT prophylaxis: Heparin Diet: Regular Diet Bae: None Lines: PIV Supplemental O2: none Disposition:Med-Surg Assessment and plan discussed with my attending physician Dr. Brittaney Saldivar (PGY-1) - Internal medicine resident
[2025-08-21 12:00] VITALS: BP 133/88; PULSE 80; RESP 20; TEMP 36.6; O2SAT 99
--- NOTE | 2025-08-21 12:24 | ESCONSULT_ITS ---
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 Pt states he has been having symptoms for the past month or so, but before that his symptoms had been well controlled with caplyta injections but he no longer has a PCP so has not taken it for a few months. He denies any fever or malaise. WBC is normal and pt underwent CT showing celllulitis, followed by MRI which showed only a <2cm perineal collection Review of Systems Review of Systems ROS Unobtainable: All systems reviewed & no additional complaints except as documented Meds Home Medications and Allergies Allergies Allergy/AdvReac Type Severity Reaction Status Date / Time No Known Allergies Allergy Verified 08/19/25 16:54 Exam Vital Signs Temp Pulse Resp BP Pulse Ox O2 Del Method 97.8 F 80 20 133/88 H 99 Room Air 08/21/25 12:00 08/21/25 12:00 08/21/25 12:00 08/21/25 12:00 08/21/25 12:00 08/21/25 12:00 Constitutional Constitutional: no acute distress Routine Respiratory Exam Respiratory: Present no resp distress Routine Extremities Exam Comments: left and right upper posterior thigh/gluteal regions with exquisite tenderness, areas of drainage, no fluctuance or erythema but skin is darkened Results Results: Laboratory Laboratory results: results reviewed Results: Imaging Imaging narrative: MRI reviewed CT scan - pelvis: report reviewed and image reviewed Assessment & Plan Plan 49M with history of hidradenitis drained in past, presenting 08/19/25 with recurrence however no drainable collections on imaging, not requiring any surgical intervention Continue abx Percocet PRN OK for my standpoint for dc, our CM is arranging a new PCP
--- NOTE | 2025-08-21 13:47 | PC.CC ---
Lost to follow-up, was on Cosentyx. No PA required by [facility]. Will require specialty pharmacy.
--- NOTE | 2025-08-21 14:33 | PC.PT ---
PT eval received. Chart reviewed and as per chart, patient has been already transferring to the bathroom and back. This is confirmed by CLIENT SERVICES COORDINATOR. Informed the ordering Physician and residents. Will cancel PT evaluation. No further needs at this time.
[2025-08-21 15:52] VITALS: BP 134/78; PULSE 86; RESP 20; TEMP 36.6; O2SAT 99
--- NOTE | 2025-08-21 15:58 | PC.SS ---
Pt states he does not have PCP. SS provided verbal choices for PCP to [facility], [facility], other clinics in [place], or [facility]. Patient's choice is [facility]. SS has spoken to Yolie from [facility] and scheduled pt an appointment for August 29, 2025 at 10:45am with Dr. Leslie. SS provided pt with [facility] with appointment information, address, and phone#.
--- NOTE | 2025-08-21 16:19 | PC.SS ---
SS met with patient regarding d/c plan. Pt is alert/oriented. Pt was admitted for Abscess. Pt confirmed demographic and contact information is correct on facesheet. Pt resides with both parents. Pt ambulates independently without assistance or DME. Pt is ok with all ADLs. 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 Pt named his brother, Gary Obrien medical decision maker if he is unable. Patient?s choice is to return home upon d/c. Pt states he is not diabetic and is not on dialysis. Patient's brother will provide transportation. D/C plan: Return home Next of Kin: Gary Obrien, brother, phone# [phone] PCP: [facility] appointment on Address: Correct on facesheet
[2025-08-21 20:00] VITALS: BP 105/68; PULSE 76; RESP 20; TEMP 36.7; O2SAT 97
[2025-08-22] VITALS: BP 125/82; PULSE 78; RESP 16; TEMP 36.9; O2SAT 98
[2025-08-22 04:00] VITALS: BP 119/75; PULSE 75; RESP 16; TEMP 36.3; O2SAT 97
[2025-08-22] MEDS: CEFEPIME INJ 2 GM in SODIUM CHLORIDE 0.9% (Popper) 50 ML IV ×2 (05:15→14:27)
[2025-08-22 05:46] LABS: Basophils # (Auto) 0.1 Thou/mm3 (0.0-0.2); Basophils % (Auto) 1 % (0-2.5); Eosinophils # (Auto) 0.2 Thou/mm3 (0.0-0.5); Eosinophils % (Auto) 3 % (0-10); Hematocrit 29.3 % (41.0-53.0); Hemoglobin 9.3 g/dL (13.5-16.0); Immature Granulocytes Auto 0.02 Thou/mm3 (0.00-0.00); Lymphocytes # (Auto) 2.1 Thou/mm3 (1.0-4.8); Lymphocytes % (Auto) 27 % (10-50); Mean Corpuscular HGB Conc 31.7 g/dl (31.0-37.0); Mean Corpuscular Hemoglobin 28.1 pg (25.0-35.0); Mean Corpuscular Volume 89 fL (80-100); Monocytes # (Auto) 0.8 Thou/mm3 (0.0-0.8); Monocytes % (Auto) 10 % (0-12); Neutrophils # (Auto) 4.7 Thou/mm3 (1.8-7.7); Neutrophils % (Auto) 59 % (37-80); Nucleated Red Blood Cell # 0.00 Thou/mm3 (0.00-0.00); Nucleated Red Blood Cell % 0 /100 WBC (0); Platelet Count 446 Thou/mm3 (140-440); RDW Standard Deviation 45.4 fL (35.1-43.9); Red Blood Count 3.31 Miln/mm3 (4.50-5.90); White Blood Count 7.9 Thou/mm3 (3.8-10.6)
[2025-08-22 06:21] LABS: Alanine Aminotransferase < 7 U/L (10-49); Albumin, Serum 3.2 gm/dL (3.5-5.0); Albumin/Globulin Ratio 0.8 (1.2-2.2); Alkaline Phosphatase 101 U/L (46-116); Anion Gap 9 (7-16); Aspartate Amino Transferase 10 U/L (0-34); BUN/Creatinine Ratio 8 Ratio (12-20); Bilirubin,Total 0.2 mg/dL (0.3-1.2); Blood Urea Nitrogen < 5 mg/dL (9-23); Calcium 8.3 mg/dL (8.3-10.6); Calcium (Corrected) 8.9 mg/dL (8.5-10.1); Carbon Dioxide 23.0 mMol/L (20.0-31.0); Chloride 105 mMol/L (98-107); Creatinine (Component) 0.6 mg/dL (0.6-1.3); Estimated Creatinine Clearance 122.4 mL/min (>60); Globulin 3.9 gm/dL (2.3-3.5); Glucose 97 mg/dL (74-106); Magnesium 1.9 mg/dL (1.6-2.6); Osmolality,Calculated 271 (275-295); Phosphorous 3.6 mg/dL (2.4-5.1); Potassium 4.1 mMol/L (3.4-5.1); Sodium 137 mMol/L (136-145); Total Protein 7.1 gm/dL (5.7-8.2); eGFR > 60 See Note
[2025-08-22] MEDS: MORPHINE SULF INJ 4 MG/ML VIAL 2 MG IVP (07:35)
[2025-08-22 07:49] VITALS: BP 107/72; PULSE 64; RESP 16; TEMP 36.3; O2SAT 97
[2025-08-22] MEDS: HEPARIN SOD INJ 5000 UNIT/ML VIAL SC (08:00)
[2025-08-22] MEDS: DOXYCYCLINE INJ 100 MG in SODIUM CHLORIDE 0.9% (POP) 100 ML IV (08:01)
[2025-08-22 11:52] VITALS: BP 131/80; PULSE 75; RESP 16; TEMP 36.3; O2SAT 97
--- NOTE | 2025-08-22 14:04 | ESDS_ITS ---
<Statement entered by Anna Quispe MD - 08/26/25 08:35> I reviewed above note and agree with findings and plans. I have also personally examined the patient with medicine team and went over assessment and plan with medical team including regulatory affairs intern and resident physician. Planned Discharge Date 08/22/25 DS: Providers Provider Date of admission: 08/20/25 01:47 Primary care physician: Casper Mantilla PA-C Admitting Provider: Paul Mcneil MD Attending Provider on Admission: Anna Quispe MD Consults: 08/20/25 07:28 Referral Wound Care Stat Comment: 08/20/25 16:15 [facility] Referral - Nutrition Routine Comment: Positive screening for nutrition needs. [facility] Referral - Utilities Routine Comment: Positive screening for utility assistance needs. 08/20/25 16:53 Referral OP Wound Healing Dept Routine Comment: Hidradenitis suppurativa 08/21/25 13:11 Consult to General Surgery Stat Comment: Consulting Provider: Yajaira Davidson Attending Provider on DC: Valente Saldivar DO Discharging Provider: Valente Saldivar DO DS: Diagnosis Problem List Completed Was Problem List Reviewed/Reconciled?: Yes Hospital Course Hospital Course Hospital course: Summary: This is a 49-year-old male with past medical history of perineal, thigh abscess s/p incision and drainage in 06/21 and 12/[address] Davidson presented to the ED with complaints of painful and draining perineal and thigh abscess. He was admitted for worsening of perineal and thigh abscess. Patient received IV abx. Based on CT and MRI imaging, there were no drainable collections on imaging. Patient was discharged for outpatient management ED course: Today ED visit vitals BP 115/73, pulse 111, respiratory 20, temperature 98.1 saturating 98% on room air. Pertinent labs are hemoglobin 10.2, hematocrit 31.6, WBC 11.4, platelet 484, ESR 119, CRP 10, lactate normal. CT abd/pelvis (08/19/2025) showed Marked skin thickening in the posterior buttock region on the right extending along the medial intergluteal cleft extending to the perianal region without definite fluid-filled abscess. Marked infection in the perineum and medial upper thigh region bilaterally more prominent involving the entire posterior right upper thigh. Early abscess in the posterior upper right thigh, axial image 250, measuring at least 33 x 22 mm. MRI pelvis upper thigh region without contrast follow-up would best assess for drainable abscesses CT Lower Extremity (08/19/2025) showed Extensive soft tissue areas of infection involving the perianal region, perineum, right buttock, upper thigh regions bilaterally medially and involving the entire posterior upper right thigh. MRI soft tissue pelvis and upper thigh region without contrast would best assess for drainable fluid collections Hospital Course: MRI of left/right femur and pelvis showed the following Left Femur MRI w/o contrast (08/20/2025): Limited study, Inflammation and infection in the medial upper left thigh but no fluid-filled abscess noted in the thigh, Negative for osteomyelitis, Coronal image 23 demonstrates 19 x 17 mm left perineal abscess. Right Femur MRI w/o contrast (08/20/2025): 19 x 18 mm fluid collection co nsistent with abscess in the left perineum. Infection, cellulitis with skin thickening in the medial right thigh but no soft tissue thigh abscess noted Pelvis MRI w/o contrast (08/20/2025): Negative for pelvic abscess, Infectious inflammatory change in the right buttock, perineum, greater on the left side medial upper thigh areas but no fluid-filled drainable abscess Blood culture was negative for 48hrs x2 Overall, there were no drainable collections on imaging, not requiring any surgical intervention. Per surgery recommendations, continued IV doxycycline milligram twice daily and cefepime 2 g IV Q8HR and percocet prn. Patient was discharged for outpatient management Instructions: Please take doxycycline 100mg by mouth twice a day or amoxicillin 500 mg by mouth twice a day for 10 additional days for cellulitis Please complete doxycycline 100 mg twice a day as prescribed for cellulitis You do not need any surgical intervention at this time per general surgery, follow-up within 1 to 2 weeks Please follow-up with your PCP within 1 to 2 weeks of discharge or follow-up at the [facility] [address] [place] [address] If your symptoms worsen or if you develop new chest pain, shortness of breath, fever/chills or severe thigh/buttock pain - please come back to the ED immediately -Followup at [facility], [address] [place] [address]. Call [phone] for appointment. Wound care to right and left buttocks/thighs; Shower than change dressings twice a day and as needed for falling off. Wash hands with soap and water. Clean with normal saline, pat dry. Repeat washing hands. Apply no sting barrier film to shelley-wound skin. Apply ABD gauze pads. Goal is to keep wound sites clean, dry and covered If active bleeding occurs, apply tight dressing and return to MD or ER. ? Notify primary doctor or return to Emergency Room if any of the following: ? Fever above 100.6? F. ? Increased pain ? Increase swelling ? Red streaks around your wound ? Drainage becomes foul smelling or changes color ? The wound is larger or deeper ? The wound looks dried out or dark ? Bleeding that does not stop with holding pressure #Perineal and bilateral thigh abscess Rt>>LT #? Hidradenitis suppurativa. #Normocytic Anemia #Smoking Assessment and plan discussed with my attending physician Dr. Brittaney Saldivar (PGY-1) - Internal medicine resident Status at Discharge Overall status at discharge: patient is progressing back to baseline Time Spent with Patient Time attestation: Total time spent providing and/or coordinating discharge services: Time spent: Greater than 30 minutes Exam Vital Signs Temp Pulse Resp BP Pulse Ox O2 Del Method 97.4 F 75 16 131/80 H 97 Room Air 08/22/25 11:52 08/22/25 11:52 08/22/25 11:52 08/22/25 11:52 08/22/25 11:52 08/22/25 11:52 Narrative Exam General: Stressed, AAO x3 Eye: PERRL, EOMI, normal conjunctiva, no scleral icterus HENT: Normocephalic, atraumatic, hearing intact to conversation at normal volume, moist oral mucosa Neck: Supple, non-tender, no JVD, no lymphadenopathy Lungs: Non-labored respirations, symmetric chest rise, Clear to auscultate bilaterally, No wheezing, rhonchi, crackles Heart: Peripheral pulses intact bilaterally, Regular Rate and Rhythm. Abdomen: Soft, non-tender, non-distended, no palpable masses Musculoskeletal: Normal range of motion and strength, No cyanosis or edema, No visible joint swelling Skin: Induration of bilateral buttocks. Right buttock/perieum is draining with serosanguineous/bloody discharge Psychiatric: Cooperative, appropriate mood and affect, Awake and alert, not agitated Neuro: Cranial nerves II-XII grossly intact. Strength 5/5 throughout. Sensations intact to light touch. Discharge Plan Plan Patient Disposition: HOME (Self Care) Care Plan Goals: Please take doxycycline 100mg by mouth twice a day or amoxicillin 500 mg by mouth twice a day for 10 additional days for cellulitis Please complete doxycycline 100 mg twice a day as prescribed for cellulitis You do not need any surgical intervention at this time per general surgery, follow-up within 1 to 2 weeks Please follow-up with your PCP within 1 to 2 weeks of discharge or follow-up at the [facility] [address] [place], [place] [id number] If your symptoms worsen or if you develop new chest pain, shortness of breath, fever/chills or severe thigh/buttock pain - please come back to the ED immediately -Followup at [facility], [address] [place] [address]. Call [phone] for appointment. Wound care to right and left buttocks/thighs; Shower than change dressings twice a day and as needed for falling off. Wash hands with soap and water. Clean with normal saline, pat dry. Repeat washing hands. Apply no sting barrier film to shelley-wound skin. Apply ABD gauze pads. Goal is to keep wound sites clean, dry and covered If active bleeding occurs, apply tight dressing and return to MD or ER. ? Notify primary doctor or return to Emergency Room if any of the following: ? Fever above 100.6? F. ? Increased pain ? Increase swelling ? Red streaks around your wound ? Drainage becomes foul smelling or changes color ? The wound is larger or deeper ? The wound looks dried out or dark ? Bleeding that does not stop with holding pressure Prescriptions/Referrals Prescriptions/Med Rec: New amoxicillin 500 mg capsule 500 mg PO BID 10 Days Qty: 20 0RF Continued doxycycline hyclate 100 mg capsule 100 mg PO BID 10 Days Qty: 20 0RF Referrals: Yajaira Davidson MD [Physician, General Surgery] Casper Mantilla PA-C [Primary Care Provider] Patient/Caregiver Discharge Instructions Education Materials: Nutrition for Wound Healing, Changing Dressing Dc, Hidradenitis Suppurativa Print Language: Croatian Stand Alone Forms: [facility] Award Info., Patient Portal Info Letter Discharge Order Discharge Orders: Discharge (Routine); Ordered 08/22/25 Ordered By: Isauro Sinha Quality Discharge Quality Measures VTE prophylaxis
[2025-08-22 15:32] VITALS: BP 116/82; PULSE 93; RESP 16; TEMP 36.3; O2SAT 97
== END 2025-08-22 17:00 | disposition home or self-care (01) | DRG 383 ==
LOC: SERX 20:09 → SERHOLD 08-20 02:05 → S3NX 08-20 15:49
PROVIDERS: Nurse Practitioner Family; Admitting Provider Internal Medicine; Emergency Provider Emergency Medicine; PCP General Practice; Visit Provider Internal Medicine
DX: L02.416 Cutaneous abscess of left lower limb (principal); L02.415 Cutaneous abscess of right lower limb; L02.215 Cutaneous abscess of perineum; N40.0 Benign prostatic hyperplasia without lower urinary tract symptoms; F17.290 Nicotine dependence, other tobacco product, uncomplicated; D64.9 Anemia, unspecified; L73.2 Hidradenitis suppurativa; Z56.0 Unemployment, unspecified
CPT/HCPCS: 36415; 71045; 72195; 73701; 73718; 74177; 80053; 80061; 80307; 80320; 81001; 83036; 83605; 83735; 84100; 84145; 84443; 85025; 85610; 85652; 86140; 87040; 96365; 96366; 96372; 96375; 99284; A4649; J0692; J1644; J1885; J2270; J2405; J3373; J3490; J7030; J7050; J7999; Q9967; A9270; G0480